=== PATIENT | female | born 1945 | race Hispanic/Latino ===

== ENCOUNTER 2018-03-24 10:37 | Inpatient (IN) | payer MEDICARE ==
[2018-03-24 11:54] LABS: PROTHROMBIN TIME 36.4 Seconds (9.8-13.1)
[2018-03-24 11:57] LABS: PARTIAL THROMBOPLASTIN TIME 56.5 Seconds (25.6-37.1)
[2018-03-24 12:01] LABS: BASO # 0.2 K/uL (0.0-0.2); BASO % 1.7 % (0.0-2.0); EOS # 0.3 K/uL (0.0-0.7); EOS % 2.3 % (0.0-4.0); HEMOGLOBIN 8.3 g/dL (12.0-16.0); LYMPH # 5.9 K/uL (1.0-4.3); LYMPH % 48.6 % (20.0-40.0); MEAN CELL VOLUME 94.7 fl (81.0-99.0); MEAN CORPUSCULAR HEMOGLOBIN 31.2 pg (27.0-31.0); MEAN CORPUSCULAR HGB CONC 32.9 g/dL (33.0-37.0); MEAN PLATELET VOLUME 7.5 fl (7.2-11.7); MONO # 2.7 K/uL (0.0-0.8); MONO % 22.2 % (0.0-10.0); NEUT % 25.2 % (50.0-75.0); NRBC % 0.1 % (0.0-0.0); PLATELET COUNT 460 K/uL (130-400); RBC 2.66 Mil/uL (3.80-5.20); RED CELL DISTRIBUTION WIDTH 16.4 % (11.5-14.5)
[2018-03-24 12:02] LABS: ALB/GLOB RATIO 0.8 (1.0-2.1); ALBUMIN 2.8 g/dL (3.5-5.0); ALT/SGPT 137 U/L (9-52); BLOOD UREA NITROGEN 22 mg/dl (7-17); GFR NON-AFRICAN AMERICAN > 60
[2018-03-24 12:09] LABS: INR 3.2
--- NOTE | 2018-03-24 12:11 | RAD ---
Date of service: 03/24/2018 HISTORY: SOB COMPARISON: No prior. FINDINGS: LUNGS: Left lung infiltrates primarily left lower lobe/retrocardiac region. PLEURA: No significant pleural effusion identified, no pneumothorax apparent. CARDIOVASCULAR: No atherosclerotic calcification present Normal. OSSEOUS STRUCTURES: No significant abnormalities. VISUALIZED UPPER ABDOMEN: Normal. OTHER FINDINGS: None. IMPRESSION: Left lower lobe infiltrate.
[2018-03-24] MEDS ORDERED: Phytonadione 1 mg/0.5 ml Inj (Neonatal) IM ONE (12:12)
[2018-03-24] MEDS ORDERED: Azithromycin 500 MG in Sodium Chloride 0.9% 250 ML IVPB STA (12:13)
[2018-03-24 12:19] LABS: B-TYPE NATRIURETIC PEPTIDE 2440 pg/ml (0-900)
[2018-03-24] MEDS ORDERED: cefTRIAXone (Rocephin) 1 gm Inj ONE (12:29)
[2018-03-24] MEDS ORDERED: Phytonadione 10 mg/ml Inj (Adult) ONE (12:30)
[2018-03-24 12:52] LABS: AST/SGOT 327 U/L (14-36)
[2018-03-24 13:09] LABS: ANISOCYTOSIS SLIGHT; EOSINOPHIL 1 % (0-7); LARGE PLATELETS PRESENT; LYMPHOCYTE 24 % (20-50); MONOCYTE 6 % (0-10); NEUTROPHIL 69 % (42-75); OVALOCYTES MODERATE; PLATELET ESTIMATE NORMAL (NORMAL); SPHEROCYTES SLIGHT; TOTAL CELLS COUNTED 100
[2018-03-24 13:10] LABS: GRANULAR CAST 1 /lpf (0-1); SQUAMOUS EPITHIAL < 1 /hpf (0-5); URINE BACTERIA RARE (<OCC); URINE BILIRUBIN MODERATE (NEGATIVE); URINE BLOOD NEGATIVE (NEGATIVE); URINE CLARITY SLIGHTY-CLOUDY (Clear); URINE COLOR AMBER (YELLOW); URINE GLUCOSE (UA) NEG (NEGATIVE); URINE LEUKOCYTE ESTERASE NEG Leu/uL (Negative); URINE PROTEIN 30 mg/dL (NEGATIVE); WBC CLUMPS FEW /hpf
--- NOTE | 2018-03-24 13:14 | ED PDOC ---
HPI: General Adult Time Seen by Provider: 03/24/18 10:51 Chief Complaint (Nursing): Abdominal Pain Chief Complaint (Provider): Weakness/ Jaundince History Per: Patient, Family (Niece) History/Exam Limitations: no limitations Onset/Duration Of Symptoms: Persistent Current Symptoms Are (Timing): Still Present Additional Complaint(s): 72 y/o female with no significant PMHX and sHs, is brought into the ED by her niece for an evaluation of weakness, inability to ambulate, and yellowing of the skin. Patient states she has not been evaluated by a doctor since the age of [age]. She is aware of her jaundice diagnosis but is unwilling to be evaluated. She only offers a complaint of mild pain to her buttocks and admits to intermittent alcohol abuse, in which, she consumes more than a 6-pack of beer per day. Patient reports "stopping cold turkey" 6 months ago. Otherwise, patient denies headaches, syncope, fever and coughing. PCP: none provided Past Medical History Reviewed: Historical Data, Nursing Documentation, Vital Signs Vital Signs: Last Vital Signs Temp 97.4 F L 03/24/18 10:39 Pulse 75 03/24/18 10:39 Resp 18 03/24/18 10:39 BP 111/75 03/24/18 10:39 Pulse Ox 93 L 03/24/18 10:39 - Medical History PMH: Arthritis (knees) Denies: Chronic Kidney Disease - Surgical History Surgical History: Tonsillectomy - Family History Family History: States: Unknown Family Hx - Social History Alcohol: > 2 Drinks/Day Drugs: Denies - Home Medications Home Medications: Ambulatory Orders Medication Instructions Recorded Aspirin/Acetaminophen/Caffeine 1 tab PO PRN PRN 03/24/18 [Excedrin Extra Strength Caplet] - Allergies Allergies/Adverse Reactions: Allergies Allergy/AdvReac Type Severity Reaction Status Date / Time No Known Allergies Allergy Verified 03/24/18 10:59 Review of Systems ROS Statement: Except As Marked, All Systems Reviewed And Found Negative Constitutional: Positive for: Weakness. Negative for: Fever Respiratory: Negative for: Cough Musculoskeletal: Positive for: Other (inability to ambulate; mild pain to buttocks) Skin: Positive for: Jaundice Neurological: Negative for: Headache, Other (syncope) Physical Exam - Reviewed Nursing Documentation Reviewed: Yes Vital Signs Reviewed: Yes - Physical Exam Appears: Positive for: Non-toxic, No Acute Distress (ill-appearance) Head Exam: Positive for: ATRAUMATIC, NORMAL INSPECTION, NORMOCEPHALIC Skin: Positive for: Jaundice Eye Exam: Positive for: Scleral icterus (Bilateral ) ENT: Positive for: Normal ENT Inspection Neck: Positive for: Normal Cardiovascular/Chest: Positive for: Regular Rate, Rhythm. Negative for: Bradycardia, Tachycardia Respiratory: Positive for: Normal Breath Sounds. Negative for: Respiratory Distress Gastrointestinal/Abdominal: Positive for: Asicites (trace on palpation), Other (anasarca). Negative for: Tenderness Back: Positive for: Other (8 cm area of erythema and irritation on buttocks) Extremity: Positive for: Other (3/5 lower extremity strength) Neurologic/Psych: Positive for: Alert, Oriented (x3) - Laboratory Results Result Diagrams: 03/24/18 11:25 03/24/18 11:25 - ECG O2 Sat by Pulse Oximetry: 93 (RA) Pulse Ox Interpretation: Normal Medical Decision Making Medical Decision Making: Time: 1059 Initial Plan: workup for possible liver failure without prior ED visit. * EKG * Labs * CXR * Accucheck * Rocephin 100ml IV * Zithromax 500mg IV * Blood culture * US ABD Time: 1121 --Accucheck: 97mg/dL. --EKG: NSR at 74 BMP. (+) Low voltages. --B/W reviewed: significant for hyperbilirubinemia, coagulopathy, and anemia. Time: 1207 --CXR FINDINGS: LUNGS: Left lung infiltrates primarily left lower lobe/retrocardiac region. PLEURA: No significant pleural effusion identified, no pneumothorax apparent. CARDIOVASCULAR: No atherosclerotic calcification present Normal. OSSEOUS STRUCTURES: No significant abnormalities. VISUALIZED UPPER ABDOMEN: Normal. OTHER FINDINGS: None. IMPRESSION: Left lower lobe infiltrate. Time: 1215 --Patient to be admitted to Dr. Clemens for acute liver failure. Antibiotics initiated for pneumonia after blood cultures initiated Abd US ordered and pending at time admission. --- Scribe Attestation: Documented by Sonja Camacho and Aundrea Baltazar, acting as scribes for Julien Garcia III, DO. Provider Scribe Attestation: All medical record entries made by the Scribe were at my direction and p ersonally dictated by me. I have reviewed the chart and agree that the record accurately reflects my personal performance of the history, physical exam, medical decision making, and the department course for this patient. I have also personally directed, reviewed, and agree with the discharge instructions and disposition. Disposition - Clinical Impression Clinical Impression: Liver failure, Pneumonia - Patient ED Disposition Is Patient to be Admitted: Yes Counseled Patient/Family Regarding: Studies Performed, Diagnosis, Need For Followup - Disposition Disposition Time: 12:00 Condition: STABLE - Pt Status Changed To: Hospital Disposition Of: Inpatient - Admit Certification Admit to Inpatient:: After my assessment, the patient will require hospitalization for at least two midnights. This is because of the severity of symptoms shown, intensity of services needed, and/or the medical risk in this patient being treated as an outpatient.
[2018-03-24] MEDS ORDERED: Azithromycin 500 MG IV IVPB ONE (14:45)
--- NOTE | 2018-03-24 15:55 | US ---
Date of service: 03/24/2018 HISTORY: new onset jaundice COMPARISON: None. TECHNIQUE: Sonographic evaluation of the abdomen. FINDINGS: LIVER: Measures 18.1 cm. Hepatopedal blood flow. Fatty infiltration manifest ultrasonographically as increased echogenicity of the liver parenchyma. Markedly dilated intrahepatic biliary radicles. No hepatic masses identified. GALLBLADDER: Distended gallbladder with sludge and possible gallstones. COMMON BILE DUCT: Measures 19.4 mm. Markedly distended common bile duct as visualized. The distal common bile duct is obscured. PANCREAS: Unremarkable as visualized. No mass. No ductal dilatation. RIGHT KIDNEY: Measures 5 x 9.8cm. Normal echogenicity. No calculus, mass, or hydronephrosis. LEFT KIDNEY: Measures 5.2 x 9.8cm. Normal echogenicity. No calculus, mass, or hydronephrosis. SPLEEN: Normal in size and contour. No mass. AORTA: No aneurysmal dilatation. IVC: Unremarkable. OTHER FINDINGS: Intra-abdominal ascites. IMPRESSION: Marked distention of the biliary system. The common bile duct and intrahepatic biliary radicles are markedly distended likely due to distal common duct obstruction. Common duct stones are not visualized. There is no visible pancreatic head mass. Intra-abdominal ascites. Cholelithiasis without CT evidence of acute cholecystitis. Sludge identified. Follow-up recommendations: Contrast-enhanced CT recommended for further evaluation to assess the distal common bile duct, pancreas and ampullary region.
--- NOTE | 2018-03-24 19:51 | CARD ---
APPROVED REPORT Date of service: 03/24/2018 EKG Measurement Heart [id number] <Conclusion> Normal sinus rhythm Low voltage QRS Nonspecific T wave abnormality Abnormal ECG
[2018-03-25 06:42] LABS: HEMOGLOBIN 7.3 g/dL (12.0-16.0); MEAN CELL VOLUME 93.8 fl (81.0-99.0); MEAN CORPUSCULAR HEMOGLOBIN 31.7 pg (27.0-31.0); MEAN CORPUSCULAR HGB CONC 33.9 g/dL (33.0-37.0); RBC 2.31 Mil/uL (3.80-5.20); RED CELL DISTRIBUTION WIDTH 16.4 % (11.5-14.5); WHITE BLOOD COUNT 9.2 K/uL (4.8-10.8)
[2018-03-25 06:50] LABS: ALB/GLOB RATIO 0.8 (1.0-2.1); ALBUMIN 2.2 g/dL (3.5-5.0); ALT/SGPT 123 U/L (9-52); AST/SGOT 289 U/L (14-36); BLOOD UREA NITROGEN 20 mg/dl (7-17); CALCIUM 8.6 mg/dL (8.4-10.2); GFR NON-AFRICAN AMERICAN > 60; HDL CHOLESTEROL 64 MG/DL (30-70)
[2018-03-25 06:55] LABS: LDL CHOLESTEROL 199 mg/dL (0-129)
[2018-03-25] MEDS: Azithromycin 500 MG in Sodium Chloride 0.9% 250 ML IVPB SCH (08:34)
[2018-03-25 16:49] LABS: HEMOGLOBIN 6.9 g/dL (12.0-16.0); MEAN CELL VOLUME 93.6 fl (81.0-99.0); MEAN CORPUSCULAR HEMOGLOBIN 31.7 pg (27.0-31.0); MEAN CORPUSCULAR HGB CONC 33.9 g/dL (33.0-37.0); RBC 2.19 Mil/uL (3.80-5.20); RED CELL DISTRIBUTION WIDTH 16.2 % (11.5-14.5); WHITE BLOOD COUNT 8.4 K/uL (4.8-10.8)
[2018-03-25] MEDS: Potassium Chloride 20 mEq ER Tab PO SCH (17:19)
--- NOTE | 2018-03-25 23:22 | CP.PCM.CON ---
History of Present Illness - History of Present Illness History of Present Illness: 72 yo female brought to ER by her niece for weakness and jaundice. She states she has been having abdominal pain and weakness for 2 months. She admits to drinking a 6 pack of beer at times but none for 6 months. Review of Systems - Constitutional Constitutional: absent: Chills - EENT Eyes: absent: Blind Spots Ears: absent: Decreased Hearing Nose/Mouth/Throat: absent: Epistaxis - Cardiovascular Cardiovascular: absent: Chest Pain - Respiratory Respiratory: absent: Dyspnea - Gastrointestinal Gastrointestinal: Abdominal Pain - Genitourinary Genitourinary: absent: Change in Urinary Stream Past Patient History - Infectious Disease Hx of Infectious Diseases: None - Past Social History Smoking Status: Never Smoked - CARDIAC Hx Cardiac Disorders: No - PULMONARY Hx Respiratory Disorders: No - NEUROLOGICAL Hx Neurological Disorder: No - HEENT Hx HEENT Problems: No - RENAL Hx Chronic Kidney Disease: No - ENDOCRINE/METABOLIC Hx Endocrine Disorders: No - HEMATOLOGICAL/ONCOLOGICAL Hx Blood Disorders: No - INTEGUMENTARY Hx Dermatological Problems: No - MUSCULOSKELETAL/RHEUMATOLOGICAL Hx Musculoskeletal Disorders: No Hx Falls: No - GASTROINTESTINAL Hx Gastrointestinal Disorders: No - GENITOURINARY/GYNECOLOGICAL Hx Genitourinary Disorders: No - PSYCHIATRIC Hx Psychophysiologic Disorder: No Hx Substance Use: No - SURGICAL HISTORY Hx Tonsillectomy: Yes - ANESTHESIA Hx Anesthesia: Yes Hx Anesthesia Reactions: No Meds Allergies/Adverse Reactions: Allergies Allergy/AdvReac Type Severity Reaction Status Date / Time No Known Allergies Allergy Verified 03/24/18 10:59 - Medications Medications: Current Medications Furosemide (Lasix) 40 mg PO DAILY LISA Azithromycin 500 mg/ Sodium (Chloride) 250 mls @ 250 mls/hr IVPB DAILY LISA; Protocol Last Admin: 03/25/18 08:34 Dose: 250 mls/hr Ceftriaxone Sodium 1 gm/ (Sodium Chloride) 100 mls @ 100 mls/hr IVPB DAILY LISA; Protocol Last Admin: 03/25/18 08:33 Dose: 100 mls/hr Pantoprazole Sodium (Protonix Ec Tab) 40 mg PO DAILY LISA Potassium Chloride (K-Dur 20 Meq Er Tab) 40 meq PO DAILY LISA Last Admin: 03/25/18 17:19 Dose: 40 meq Physical Exam - Head Exam Head Exam: ATRAUMATIC - Eye Exam Eye Exam: Normal appearance, Scleral icterus - ENT Exam ENT Exam: Mucous Membranes Moist - Neck Exam Neck exam: Positive for: Normal Inspection - Respiratory Exam Respiratory Exam: Clear to Auscultation Bilateral - Cardiovascular Exam Cardiovascular Exam: REGULAR RHYTHM, +S1, +S2 - GI/Abdominal Exam GI & Abdominal Exam: Normal Bowel Sounds, Soft. absent: Tenderness Results - Vital Signs Recent Vital Signs: Last Vital Signs Temp 98.4 F 03/25/18 22:10 Pulse 77 03/25/18 22:10 Resp 17 03/25/18 22:10 BP 110/62 03/25/18 22:10 Pulse Ox 98 03/25/18 16:31 - Labs Result Diagrams: 03/25/18 16:45 03/25/18 05:30 Labs: Laboratory Results - last 24 hr 03/25/18 03/25/18 03/25/18 05:30 05:30 05:30 WBC 9.2 RBC 2.31 L Hgb 7.3 L Hct 21.7 L MCV 93.8 MCH 31.7 H MCHC 33.9 RDW 16.4 H Plt Count 411 H ESR 82 H Sodium 134 Potassium 3.1 L Chloride 107 Carbon Dioxide 20 L Anion Gap 10 BUN 20 H Creatinine 0.9 Est GFR ( Amer) > 60 Est GFR (Non-Af Amer) > 60 Random Glucose 91 Calcium 8.6 Total Bilirubin 12.8 H AST 289 H ALT 123 H Alkaline Phosphatase 2928 H Total Protein 5.2 L Albumin 2.2 L D Globulin 2.9 Albumin/Globulin Ratio 0.8 L Triglycerides 121 Cholesterol 478 H LDL Cholesterol Direct 199 H HDL Cholesterol 64 Alpha Fetoprotein 4.7 Carcinoembryonic Ag 23.5 H CA 19-9 Antigen 8150 H TSH 3rd Generation 2.63 Blood Type Blood Type Confirm Antibody Screen Crossmatch BBK History Checked 03/25/18 03/25/18 03/25/18 16:45 16:45 17:45 WBC 8.4 RBC 2.19 L Hgb 6.9 L Hct 20.4 L MCV 93.6 MCH 31.7 H MCHC 33.9 RDW 16.2 H Plt Count 346 ESR Sodium Potassium Chloride Carbon Dioxide Anion Gap BUN Creatinine Est GFR ( Amer) Est GFR (Non-Af Amer) Random Glucose Calcium Total Bilirubin AST ALT Alkaline Phosphatase Total Protein Albumin Globulin Albumin/Globulin Ratio Triglycerides Cholesterol LDL Cholesterol Direct HDL Cholesterol Alpha Fetoprotein Carcinoembryonic Ag CA 19-9 Antigen TSH 3rd Generation Blood Type B POSITIVE Blood Type Confirm B POSITIVE Antibody Screen Negative Crossmatch See Detail BBK History Checked No verified bt Assessment & Plan (1) Obstructive jaundice Assessment and Plan: Obstructive jaundice. DDX includes stne or mass. Also marked abdominal distention. Recommend CT abdomen and pelvis. After CT will do ERCP. IV hydration for now. Status: Acute
[2018-03-26] MEDS ORDERED: Iohexol 240 (50 ml) PO STA (07:13)
[2018-03-26 07:50] LABS: HEMOGLOBIN 9.9 g/dL (12.0-16.0); MEAN CELL VOLUME 93.8 fl (81.0-99.0); MEAN CORPUSCULAR HEMOGLOBIN 31.4 pg (27.0-31.0); MEAN CORPUSCULAR HGB CONC 33.5 g/dL (33.0-37.0); RBC 3.14 Mil/uL (3.80-5.20); RED CELL DISTRIBUTION WIDTH 16.5 % (11.5-14.5); WHITE BLOOD COUNT 8.7 K/uL (4.8-10.8)
[2018-03-26] MEDS: Potassium Chloride 20 mEq ER Tab PO SCH (08:42)
[2018-03-26] MEDS: Pantoprazole 40 mg EC Tab PO SCH (08:43)
[2018-03-26] MEDS: Azithromycin 500 MG in Sodium Chloride 0.9% 250 ML IVPB SCH (11:08)
[2018-03-26] MEDS ORDERED: Sodium Chloride 0.9% 50 ML IV ONE (11:25)
[2018-03-26] MEDS ORDERED: Iohexol 300 100 ML IJ ONE (11:25)
--- NOTE | 2018-03-26 13:43 | CT ---
Date of service: 03/26/2018 PROCEDURE: CT Abdomen and Pelvis with and without intravenous contrast HISTORY: Elevated Bili, Abdominal swelling. R/o malignancy COMPARISON: None. TECHNIQUE: Axial images of the abdomen were obtained in the pre contrast, portal venous and delayed phases of enhancement. Coronal and sagittal reformats were generated. Contrast dose: Omnipaque 300, 95 cc Radiation dose: Total exam DLP = 1537.02 mGy-cm. This CT exam was performed using one or more of the following dose reduction techniques: Automated exposure control, adjustment of the mA and/or kV according to patient size, and/or use of iterative reconstruction technique. FINDINGS: LOWER THORAX: Bilateral lower lobe infiltrates and left pleural effusion noted. LIVER: Gross intrahepatic biliary duct dilatation is identified. No definitive hepatic mass identified. GALLBLADDER AND BILE DUCTS: Gallbladder is mildly distended and otherwise unremarkable appearing. Gross extrahepatic bile duct dilatation including common hepatic duct which measures 22.1 mm, proximal common bile duct which measures 21 mm, mid CBD 17.6 mm and distal CBD 7.4 mm. There is questionable prominence of the ampulla and an ampullary mass is not excluded. No definite choledocholithiasis or cholelithiasis identified. PANCREAS: 1.8 x 1.6 cm lucency identified at the pancreatic head suspicious for small neoplasm. SPLEEN: Unremarkable. ADRENALS: Unremarkable. No mass. KIDNEYS AND URETERS: Unremarkable. No hydronephrosis. No solid mass. VASCULATURE: Unremarkable. No aortic aneurysm. No aortic atherosclerotic calcification or mural plaque present. BOWEL: Unremarkable. No obstruction. No gross mural thickening. APPENDIX: Normal appendix. PERITONEUM: There is gross ascites. No free air. LYMPH NODES: Unremarkable. No enlarged lymph nodes. BLADDER: Unremarkable. REPRODUCTIVE: Unremarkable. BONES: No acute fracture. OTHER FINDINGS: Anasarca. IMPRESSION: Gross dilatation of the intrahepatic and extrahepatic biliary tree without choledocholithiasis appreciable. Gallbladder is mildly distended. Potential ampullary mass. Gross ascites. Anasarca identified. There are small lucency at the head of the pancreas is identified. Consider follow-up ultrasound or MRI without contrast.
[2018-03-26] MEDS: Lactated Ringer's 1,000 ML IV SCH (23:59)
[2018-03-27] MEDS: Proshield Plus GEL TOP SCH ×3 (01:15→16:39)
[2018-03-27 06:22] LABS: MEAN CELL VOLUME 92.2 fl (81.0-99.0); MEAN CORPUSCULAR HEMOGLOBIN 31.5 pg (27.0-31.0); MEAN CORPUSCULAR HGB CONC 34.1 g/dL (33.0-37.0); RBC 3.19 Mil/uL (3.80-5.20); RED CELL DISTRIBUTION WIDTH 17.2 % (11.5-14.5); WHITE BLOOD COUNT 10.4 K/uL (4.8-10.8)
[2018-03-27 06:44] LABS: INR 1.1; PROTHROMBIN TIME 12.3 Seconds (9.8-13.1)
[2018-03-27 06:49] LABS: ALB/GLOB RATIO 0.7 (1.0-2.1); ALBUMIN 2.1 g/dL (3.5-5.0); ALT/SGPT 117 U/L (9-52); AST/SGOT 226 U/L (14-36); BLOOD UREA NITROGEN 17 mg/dl (7-17); CALCIUM 8.3 mg/dL (8.4-10.2); GFR NON-AFRICAN AMERICAN > 60
--- NOTE | 2018-03-27 07:19 | CP.PCM.HP ---
History of Present Illness - History of Present Illness History of Present Illness: This is a 72 y/o female admitted for generalized weakness , progressive weight loss and elevated liver enzymes . Past Patient History - Infectious Disease Hx of Infectious Diseases: None - Past Social History Smoking Status: Never Smoked - CARDIAC Hx Cardiac Disorders: No - PULMONARY Hx Respiratory Disorders: No - NEUROLOGICAL Hx Neurological Disorder: No - HEENT Hx HEENT Problems: No - RENAL Hx Chronic Kidney Disease: No - ENDOCRINE/METABOLIC Hx Endocrine Disorders: No - HEMATOLOGICAL/ONCOLOGICAL Hx Blood Disorders: No - INTEGUMENTARY Hx Dermatological Problems: No - MUSCULOSKELETAL/RHEUMATOLOGICAL Hx Musculoskeletal Disorders: No Hx Falls: No - GASTROINTESTINAL Hx Gastrointestinal Disorders: No - GENITOURINARY/GYNECOLOGICAL Hx Genitourinary Disorders: No - PSYCHIATRIC Hx Psychophysiologic Disorder: No Hx Substance Use: No - SURGICAL HISTORY Hx Tonsillectomy: Yes - ANESTHESIA Hx Anesthesia: Yes Hx Anesthesia Reactions: No Meds Allergies/Adverse Reactions: Allergies Allergy/AdvReac Type Severity Reaction Status Date / Time No Known Allergies Allergy Verified 03/24/18 10:59 Results - Vital Signs Recent Vital Signs: Last Vital Signs Temp 97.4 F L 03/26/18 23:32 Pulse 80 03/26/18 23:32 Resp 20 03/26/18 23:32 BP 109/65 03/26/18 23:32 Pulse Ox 98 03/26/18 23:32 - Labs Result Diagrams: 03/27/18 05:45 03/27/18 05:45 Labs: Laboratory Results - last 24 hr 03/25/18 03/26/18 03/27/18 16:45 06:00 05:45 WBC 8.7 10.4 RBC 3.14 L 3.19 L Hgb 9.9 L D 10.0 L Hct 29.4 L 29.4 L MCV 93.8 92.2 MCH 31.4 H 31.5 H MCHC 33.5 34.1 RDW 16.5 H 17.2 H Plt Count 347 285 PT INR Sodium Potassium Chloride Carbon Dioxide Anion Gap BUN Creatinine Est GFR ( Amer) Est GFR (Non-Af Amer) Random Glucose Calcium Total Bilirubin AST ALT Alkaline Phosphatase Total Protein Albumin Globulin Albumin/Globulin Ratio Crossmatch See Detail 03/27/18 03/27/18 05:45 05:45 WBC RBC Hgb Hct MCV MCH MCHC RDW Plt Count PT 12.3 D INR 1.1 Sodium 135 Potassium 3.5 L Chloride 105 Carbon Dioxide 20 L Anion Gap 14 BUN 17 Creatinine 0.7 Est GFR ( Amer) > 60 Est GFR (Non-Af Amer) > 60 Random Glucose 99 Calcium 8.3 L Total Bilirubin 14.4 H AST 226 H D ALT 117 H Alkaline Phosphatase 2840 H Total Protein 5.2 L Albumin 2.1 L Globulin 3.0 Albumin/Globulin Ratio 0.7 L Crossmatch
--- NOTE | 2018-03-27 07:21 | CP.PCM.PN ---
Subjective - Date & Time of Evaluation Date of Evaluation: 03/26/18 Time of Evaluation: 18:00 - Subjective Subjective: Patient has better appetite. family claims that she has lost about more than a hundred pounds in the last year, Noted elevated CEA abn libver enzymes and possible pancreatic mass. CA 19-9 8150 CEA 23 Objective - Vital Signs/Intake and Output Vital Signs (last 24 hours): Temp Pulse Resp BP Pulse Ox 97.4 F L 80 20 109/65 98 03/26/18 23:32 03/26/18 23:32 03/26/18 23:32 03/26/18 23:32 03/26/18 23:32 - Medications Medications: Current Medications Dimethicone (Proshield Plus Skin Protectant) 1 applic TOP Q8 LISA Last Admin: 03/27/18 01:15 Dose: 1 applic Furosemide (Lasix) 40 mg PO DAILY LISA Last Admin: 03/26/18 08:43 Dose: 40 mg Azithromycin 500 mg/ Sodium (Chloride) 250 mls @ 250 mls/hr IVPB DAILY LISA; Protocol Last Admin: 03/26/18 11:08 Dose: 250 mls/hr Ceftriaxone Sodium 1 gm/ (Sodium Chloride) 100 mls @ 100 mls/hr IVPB DAILY LISA; Protocol Last Admin: 03/26/18 08:43 Dose: 100 mls/hr Lactated Ringer's (Lactated Ringer's) 1,000 mls @ 60 mls/hr IV .[id number] LISA Last Admin: 03/26/18 23:59 Dose: 60 mls/hr Nystatin (Nystop Topical Powder) 1 applic TOP TID LISA Pantoprazole Sodium (Protonix Ec Tab) 40 mg PO DAILY LISA Last Admin: 03/26/18 08:43 Dose: 40 mg Potassium Chloride (K-Dur 20 Meq Er Tab) 40 meq PO DAILY LISA Last Admin: 03/26/18 08:42 Dose: 40 meq - Labs Labs: 03/27/18 05:45 03/27/18 05:45 PT 12.3 Seconds (9.8-13.1) D 03/27/18 05:45 INR 1.1 03/27/18 05:45 APTT 56.5 Seconds (25.6-37.1) H 03/24/18 11:25
[2018-03-27 08:13] LABS: HEPATITIS B SURFACE AG Negative (NEGATIVE)
[2018-03-27 08:19] LABS: HEPATITIS A IGM NEGATIVE (NEGATIVE); HEPATITIS B CORE AB NEGATIVE (NEGATIVE)
[2018-03-27] MEDS: Potassium Chloride 20 mEq ER Tab PO SCH ×2 (08:29→16:39)
[2018-03-27 08:30] LABS: HEPATITIS C ANTIBODY NEGATIVE (NEGATIVE)
[2018-03-27] MEDS: Pantoprazole 40 mg EC Tab PO SCH ×2 (08:30→16:44)
[2018-03-27] MEDS: Azithromycin 500 MG in Sodium Chloride 0.9% 250 ML IVPB SCH (08:32)
--- NOTE | 2018-03-27 14:10 | CP.PCM.PN ---
Subjective - Date & Time of Evaluation Date of Evaluation: 03/27/18 Time of Evaluation: 14:07 - Subjective Subjective: Patient with no new complaints. Continues with jaundice. Objective - Vital Signs/Intake and Output Vital Signs (last 24 hours): Temp Pulse Resp BP Pulse Ox 97.9 F 76 18 101/62 99 03/27/18 07:39 03/27/18 07:39 03/27/18 07:39 03/27/18 07:39 03/27/18 07:39 - Medications Medications: Current Medications Dimethicone (Proshield Plus Skin Protectant) 1 applic TOP Q8 LISA Last Admin: 03/27/18 08:30 Dose: 1 applic Furosemide (Lasix) 40 mg PO DAILY LISA Last Admin: 03/27/18 08:30 Dose: Not Given Azithromycin 500 mg/ Sodium (Chloride) 250 mls @ 250 mls/hr IVPB DAILY LISA; Protocol Last Admin: 03/27/18 08:32 Dose: 250 mls/hr Ceftriaxone Sodium 1 gm/ (Sodium Chloride) 100 mls @ 100 mls/hr IVPB DAILY LISA; Protocol Last Admin: 03/27/18 08:32 Dose: 100 mls/hr Lactated Ringer's (Lactated Ringer's) 1,000 mls @ 60 mls/hr IV .[id number] LISA Last Admin: 03/26/18 23:59 Dose: 60 mls/hr Nystatin (Nystop Topical Powder) 1 applic TOP TID LISA Last Admin: 03/27/18 13:09 Dose: 1 applic Pantoprazole Sodium (Protonix Ec Tab) 40 mg PO DAILY LISA Last Admin: 03/27/18 08:30 Dose: Not Given Potassium Chloride (K-Dur 20 Meq Er Tab) 40 meq PO DAILY LISA Last Admin: 03/27/18 08:29 Dose: Not Given - Labs Labs: 03/27/18 05:45 03/27/18 05:45 PT 12.3 Seconds (9.8-13.1) D 03/27/18 05:45 INR 1.1 03/27/18 05:45 APTT 56.5 Seconds (25.6-37.1) H 03/24/18 11:25 - Constitutional Appears: Cachectic - Head Exam Head Exam: ATRAUMATIC - Eye Exam Eye Exam: Scleral icterus - ENT Exam ENT Exam: Normal Exam - Neck Exam Neck Exam: Full ROM - Respiratory Exam Respiratory Exam: NORMAL BREATHING PATTERN - Cardiovascular Exam Cardiovascular Exam: REGULAR RHYTHM, +S1, +S2 - GI/Abdominal Exam GI & Abdominal Exam: Distended, Normal Bowel Sounds. absent: Tenderness Assessment and Plan (1) Obstructive jaundice Assessment & Plan: Elevated CA 19-[address] most c/w pancreatic cancer. For ERCP tomorrow with biliary stenting tomorrow. Status: Acute
[2018-03-27] MEDS: Lactated Ringer's 1,000 ML IV SCH ×2 (16:47→20:37)
[2018-03-28] MEDS: Proshield Plus GEL TOP SCH ×3 (01:00→16:49)
[2018-03-28 06:00] LABS: HEMOGLOBIN 11.4 g/dL (12.0-16.0); MEAN CELL VOLUME 92.7 fl (81.0-99.0); MEAN CORPUSCULAR HEMOGLOBIN 31.1 pg (27.0-31.0); MEAN CORPUSCULAR HGB CONC 33.5 g/dL (33.0-37.0); RBC 3.68 Mil/uL (3.80-5.20); RED CELL DISTRIBUTION WIDTH 17.1 % (11.5-14.5); WHITE BLOOD COUNT 9.9 K/uL (4.8-10.8)
[2018-03-28 06:58] LABS: ALB/GLOB RATIO 0.7 (1.0-2.1); ALBUMIN 2.2 g/dL (3.5-5.0); ALT/SGPT 104 U/L (9-52); AST/SGOT 161 U/L (14-36); BLOOD UREA NITROGEN 18 mg/dl (7-17); CALCIUM 8.7 mg/dL (8.4-10.2); GFR NON-AFRICAN AMERICAN > 60
[2018-03-28] MEDS ORDERED: Phenylephrine 10 mg/ml Inj ONE (07:05)
[2018-03-28] MEDS ORDERED: ePHEDrine 50 mg/ml Inj ONE (07:05)
[2018-03-28] MEDS ORDERED: Iohexol 240 (50 ml) ONE (07:24)
[2018-03-28] MEDS ORDERED: Succinylcholine 200 mg/10 ml Inj IV ONE (07:40)
[2018-03-28] MEDS ORDERED: Propofol 10 mg/ml Inj (20 ML) ONE (07:40)
[2018-03-28] MEDS ORDERED: Lactated Ringer's 500 ML IV ONE ×2 (08:26→10:10)
[2018-03-28] MEDS ORDERED: EPINEPHrine 1 mg/ml (1:1000) Inj ONE (09:14)
[2018-03-28] MEDS: Potassium Chloride 20 mEq ER Tab PO SCH (12:05)
[2018-03-28] MEDS: Pantoprazole 40 mg EC Tab PO SCH (12:06)
--- NOTE | 2018-03-28 12:07 | CP.PCM.PN ---
Subjective - Date & Time of Evaluation Date of Evaluation: 03/28/18 Time of Evaluation: 12:00 - Subjective Subjective: Pt seen/evaluated at bedside this morning. S/p ERCP with stent placement by GI, Dr. Viramontes. Pt reports no acute distress, sitting up in bed. Tolerating drinking water. No chest pain, abdominal pain, bloating, shortness of breath, or calf pain. Objective - Vital Signs/Intake and Output Vital Signs (last 24 hours): Temp Pulse Resp BP Pulse Ox 97.1 F L 79 19 109/60 100 03/28/18 10:20 03/28/18 10:20 03/28/18 10:20 03/28/18 10:20 03/28/18 10:20 Intake and Output: 03/28/18 03/28/18 06:59 18:59 Intake Total 550 Balance 550 - Medications Medications: Current Medications Dimethicone (Proshield Plus Skin Protectant) 1 applic TOP Q8 LISA Last Admin: 03/28/18 01:00 Dose: 1 applic Furosemide (Lasix) 40 mg PO DAILY LISA Last Admin: 03/27/18 16:39 Dose: 40 mg Azithromycin 500 mg/ Sodium (Chloride) 250 mls @ 250 mls/hr IVPB DAILY LISA; Protocol Last Admin: 03/27/18 08:32 Dose: 250 mls/hr Ceftriaxone Sodium 1 gm/ (Sodium Chloride) 100 mls @ 100 mls/hr IVPB DAILY LISA; Protocol Last Admin: 03/27/18 08:32 Dose: 100 mls/hr Lactated Ringer's (Lactated Ringer's) 1,000 mls @ 60 mls/hr IV .[id number] LISA Last Admin: 03/27/18 20:37 Dose: 60 mls/hr Nystatin (Nystop Topical Powder) 1 applic TOP TID LISA Last Admin: 03/27/18 16:39 Dose: 1 applic Pantoprazole Sodium (Protonix Ec Tab) 40 mg PO DAILY LISA Last Admin: 03/27/18 16:44 Dose: 40 mg Potassium Chloride (K-Dur 20 Meq Er Tab) 40 meq PO DAILY LISA Last Admin: 03/27/18 16:39 Dose: 40 meq - Labs Labs: 03/28/18 05:40 03/28/18 05:40 PT 12.3 Seconds (9.8-13.1) D 03/27/18 05:45 INR 1.1 03/27/18 05:45 APTT 56.5 Seconds (25.6-37.1) H 03/24/18 11:25 Assessment and Plan (1) Obstructive jaundice Status: Acute (2) Elevated CA 19-9 level Status: Acute (3) Elevated CEA Status: Acute (4) Elevated liver enzymes Status: Acute (5) Pneumonia Status: Acute - Assessment and Plan (Free Text) Plan: - S/p ERCP today with stent placement; f/u recs from GI Dr. Viramontes, recs appreciated - Continue with antibiotics for PNA - Monitor liver enzymes on CMP - Hypokalemia - replete K w/ PO K, monitor - Elevated CEA and CA19-9, possible pancreatic mass- heme/onc consult - Heart healthy diet - Physical therapy eval and treat - SCDs
[2018-03-28] MEDS: Azithromycin 500 MG in Sodium Chloride 0.9% 250 ML IVPB SCH (14:10)
[2018-03-28] MEDS: Lactated Ringer's 1,000 ML IV SCH (19:36)
[2018-03-29] MEDS: Proshield Plus GEL TOP SCH ×4 (01:06→17:19)
[2018-03-29] MEDS: Lactated Ringer's 1,000 ML IV SCH ×3 (02:00→22:52)
[2018-03-29 06:22] LABS: ALB/GLOB RATIO 0.7 (1.0-2.1); ALBUMIN 2.4 g/dL (3.5-5.0); ALT/SGPT 102 U/L (9-52); AST/SGOT 141 U/L (14-36); BLOOD UREA NITROGEN 21 mg/dl (7-17); CALCIUM 8.9 mg/dL (8.4-10.2); GFR NON-AFRICAN AMERICAN > 60
[2018-03-29] MEDS: Azithromycin 500 MG in Sodium Chloride 0.9% 250 ML IVPB SCH (09:17)
[2018-03-29] MEDS: Potassium Chloride 20 mEq ER Tab PO SCH (09:19)
[2018-03-29] MEDS: Pantoprazole 40 mg EC Tab PO SCH (09:30)
--- NOTE | 2018-03-29 10:10 | CP.PCM.CON ---
History of Present Illness - History of Present Illness History of Present Illness: This is a 72 yrs old female who was brought to the ED by her niece because of increasing weakness and jaundice, Pt has been weak for the past couple of months but did not want to be investigated. The last time she saw a doctor was when she was 4 yrs old. Her appetite was poor but no vomiting or abdominal pain. A ct scan done on arrival showed the common bile duct to be very dilated, with a mass in the pancreas . no liver mass. Pt has a h/o drinking 1-2 drinks daily or occasionally 6 beers a day. No h/o other medical illnesses. Past Patient History - Infectious Disease Hx of Infectious Diseases: None - Past Social History Smoking Status: Never Smoked - CARDIAC Hx Cardiac Disorders: No - PULMONARY Hx Respiratory Disorders: No - NEUROLOGICAL Hx Neurological Disorder: No - HEENT Hx HEENT Problems: No - RENAL Hx Chronic Kidney Disease: No - ENDOCRINE/METABOLIC Hx Endocrine Disorders: No - HEMATOLOGICAL/ONCOLOGICAL Hx Blood Disorders: No - INTEGUMENTARY Hx Dermatological Problems: No - MUSCULOSKELETAL/RHEUMATOLOGICAL Hx Musculoskeletal Disorders: No Hx Falls: No - GASTROINTESTINAL Hx Gastrointestinal Disorders: No - GENITOURINARY/GYNECOLOGICAL Hx Genitourinary Disorders: No - PSYCHIATRIC Hx Psychophysiologic Disorder: No Hx Substance Use: No - SURGICAL HISTORY Hx Tonsillectomy: Yes - ANESTHESIA Hx Anesthesia: Yes Hx Anesthesia Reactions: No Meds Allergies/Adverse Reactions: Allergies Allergy/AdvReac Type Severity Reaction Status Date / Time No Known Allergies Allergy Verified 03/24/18 10:59 - Medications Medications: Current Medications Dimethicone (Proshield Plus Skin Protectant) 1 applic TOP Q8 [facility] Last Admin: 03/29/18 09:21 Dose: 1 applic Furosemide (Lasix) 40 mg PO DAILY [facility] Last Admin: 03/29/18 09:19 Dose: 40 mg Azithromycin 500 mg/ Sodium (Chloride) 250 mls @ 250 mls/hr IVPB DAILY [facility]; Protocol Last Admin: 03/29/18 09:17 Dose: 250 mls/hr Ceftriaxone Sodium 1 gm/ (Sodium Chloride) 100 mls @ 100 mls/hr IVPB DAILY [facility]; Protocol Last Admin: 03/29/18 09:17 Dose: 100 mls/hr Lactated Ringer's (Lactated Ringer's) 1,000 mls @ 60 mls/hr IV .[id number] [facility] Last Admin: 12/19/18 02:00 Dose: Not Given Nystatin (Nystop Topical Powder) 1 applic TOP TID [facility] Last Admin: 03/29/18 09:20 Dose: 1 applic Pantoprazole Sodium (Protonix Ec Tab) 40 mg PO DAILY [facility] Last Admin: 03/29/18 09:30 Dose: 40 mg Potassium Chloride (K-Dur 20 Meq Er Tab) 40 meq PO DAILY [facility] Last Admin: 03/29/18 09:19 Dose: 40 meq Physical Exam - Additional Findings Additional findings: Physical exam; Alert.well oriented, in no acute distress, very jaundiced. neck; supple, no adenopathy Chest; Air entry decreased both bases,, no raleor rhonchi Heart; RSR, no murmur Abd; Ascitis 3+, mass 2-3 cm in the epigastric area. Results - Vital Signs Recent Vital Signs: Last Vital Signs Temp 97.5 F L 03/29/18 08:00 Pulse 69 03/29/18 08:00 Resp 20 03/29/18 08:00 BP 109/64 03/29/18 09:19 Pulse Ox 98 03/29/18 08:00 - Labs Result Diagrams: 03/28/18 05:40 03/29/18 05:35 Labs: Laboratory Results - last 24 hr 03/29/18 05:35 Sodium 136 Potassium 4.0 Chloride 107 Carbon Dioxide 20 L Anion Gap 13 BUN 21 H Creatinine 0.8 Est GFR ( Amer) > 60 Est GFR (Non-Af Amer) > 60 Random Glucose 108 H Calcium 8.9 Total Bilirubin 10.0 H AST 141 H ALT 102 H Alkaline Phosphatase 2695 H Total Protein 5.6 L Albumin 2.4 L Globulin 3.2 Albumin/Globulin Ratio 0.7 L Assessment & Plan - Assessment and Plan (Free Text) Assessment: impression; Pancreatic mass 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
--- NOTE | 2018-03-29 11:19 | CP.PCM.PN ---
Subjective - Date & Time of Evaluation Date of Evaluation: 03/29/18 Time of Evaluation: 11:20 - Subjective Subjective: Pt seen/evaluated at bedside this morning with Dr. Ham. Yesterday she underwent ERCP with stent placement by GI, Dr. Viramontes. Pt reports she feels okay, has more of an appetite, sitting up in bed. Tried to work with PT yest but could not do much. No chest pain, abdominal pain, bloating, shortness of breath, or calf pain. Objective - Vital Signs/Intake and Output Vital Signs (last 24 hours): Temp Pulse Resp BP Pulse Ox 97.5 F L 69 20 109/64 98 03/29/18 08:00 03/29/18 08:00 03/29/18 08:00 03/29/18 09:19 03/29/18 08:00 - Medications Medications: Current Medications Dimethicone (Proshield Plus Skin Protectant) 1 applic TOP Q8 [facility] Last Admin: 03/29/18 09:21 Dose: 1 applic Furosemide (Lasix) 40 mg PO DAILY [facility] Last Admin: 03/29/18 09:19 Dose: 40 mg Azithromycin 500 mg/ Sodium (Chloride) 250 mls @ 250 mls/hr IVPB DAILY [facility]; Protocol Last Admin: 03/29/18 09:17 Dose: 250 mls/hr Ceftriaxone Sodium 1 gm/ (Sodium Chloride) 100 mls @ 100 mls/hr IVPB DAILY [facility]; Protocol Last Admin: 03/29/18 09:17 Dose: 100 mls/hr Lactated Ringer's (Lactated Ringer's) 1,000 mls @ 60 mls/hr IV .[id number] [facility] Last Admin: 03/29/18 02:00 Dose: Not Given Nystatin (Nystop Topical Powder) 1 applic TOP TID [facility] Last Admin: 03/29/18 09:20 Dose: 1 applic Pantoprazole Sodium (Protonix Ec Tab) 40 mg PO DAILY [facility] Last Admin: 03/29/18 09:30 Dose: 40 mg Potassium Chloride (K-Dur 20 Meq Er Tab) 40 meq PO DAILY [facility] Last Admin: 03/29/18 09:19 Dose: 40 meq - Labs Labs: 03/28/18 05:40 03/29/18 05:35 PT 12.3 Seconds (9.8-13.1) D 03/27/18 05:45 INR 1.1 03/27/18 05:45 APTT 56.5 Seconds (25.6-37.1) H 03/24/18 11:25 - Constitutional Appears: No Acute Distress, Chronically Ill - Head Exam Head Exam: NORMOCEPHALIC - Eye Exam Eye Exam: Scleral icterus - Neck Exam Neck Exam: Full ROM - Respiratory Exam Respiratory Exam: NORMAL BREATHING PATTERN - Cardiovascular Exam Cardiovascular Exam: REGULAR RHYTHM, +S1, +S2 - GI/Abdominal Exam GI & Abdominal Exam: Soft - Extremities Exam Extremities Exam: absent: Calf Tenderness - Neurological Exam Neurological Exam: Alert - Psychiatric Exam Psychiatric exam: Normal Affect - Skin Skin Exam: Dry, Warm Additional comments: jaundice Assessment and Plan (1) Obstructive jaundice Status: Acute (2) Elevated CA 19-9 level Status: Acute (3) Elevated CEA Status: Acute (4) Elevated liver enzymes Status: Acute (5) Pneumonia Status: Acute - Assessment and Plan (Free Text) Plan: - S/p ERCP yesterday with stent placement; f/u recs from GI Dr. Viramontes, recs appreciated; pending biopsy of mass at the major papilla tomorrow - Total bili down to 10 today from 14 on admission - Continue with antibiotics for PNA - Monitor liver enzymes on CMP; trending down but still elevated - Hypokalemia - replete K w/ PO K, stable today, monitor - Elevated CEA and CA19-9, possible pancreatic mass- heme/onc consult, Dr. Sathish Schwartz, recs pending and appreciated - s/p 2U PRBC transfusion during this admission, Hgb holding at 11 today - Heart healthy diet - Encourage participation in physical therapy - Lovenox SC
[2018-03-29] MEDS: Enoxaparin 40 mg Syringe SC SCH (13:35)
--- NOTE | 2018-03-29 16:26 | CP.PCM.PN ---
Subjective - Date & Time of Evaluation Date of Evaluation: 03/29/18 Time of Evaluation: 16:23 - Subjective Subjective: Feeling stronger. Reports good apetite Objective - Vital Signs/Intake and Output Vital Signs (last 24 hours): Temp Pulse Resp BP Pulse Ox 97.5 F L 73 20 111/70 98 03/29/18 16:21 03/29/18 16:21 03/29/18 16:21 03/29/18 16:21 03/29/18 16:21 - Medications Medications: Current Medications Dimethicone (Proshield Plus Skin Protectant) 1 applic TOP Q8 [facility] Last Admin: 03/29/18 09:21 Dose: 1 applic Enoxaparin Sodium (Lovenox) 40 mg SC DAILY [facility]; Protocol Last Admin: 03/29/18 13:35 Dose: 40 mg Furosemide (Lasix) 40 mg PO DAILY [facility] Last Admin: 03/29/18 09:19 Dose: 40 mg Azithromycin 500 mg/ Sodium (Chloride) 250 mls @ 250 mls/hr IVPB DAILY [facility]; Protocol Last Admin: 03/29/18 09:17 Dose: 250 mls/hr Ceftriaxone Sodium 1 gm/ (Sodium Chloride) 100 mls @ 100 mls/hr IVPB DAILY [facility]; Protocol Last Admin: 03/29/18 09:17 Dose: 100 mls/hr Lactated Ringer's (Lactated Ringer's) 1,000 mls @ 60 mls/hr IV .[id number] [facility] Last Admin: 03/29/18 02:00 Dose: Not Given Nystatin (Nystop Topical Powder) 1 applic TOP TID [facility] Last Admin: 03/29/18 13:36 Dose: 1 applic Pantoprazole Sodium (Protonix Ec Tab) 40 mg PO DAILY [facility] Last Admin: 03/29/18 09:30 Dose: 40 mg Potassium Chloride (K-Dur 20 Meq Er Tab) 40 meq PO DAILY [facility] Last Admin: 03/29/18 09:19 Dose: 40 meq - Labs Labs: 03/28/18 05:40 03/29/18 05:35 PT 12.3 Seconds (9.8-13.1) D 03/27/18 05:45 INR 1.1 03/27/18 05:45 APTT 56.5 Seconds (25.6-37.1) H 03/24/18 11:25 - Head Exam Head Exam: ATRAUMATIC - Eye Exam Eye Exam: Scleral icterus - ENT Exam ENT Exam: Normal Exam - Respiratory Exam Respiratory Exam: Clear to Ausculation Bilateral, NORMAL BREATHING PATTERN - GI/Abdominal Exam GI & Abdominal Exam: Distended, Soft. absent: Tenderness Assessment and Plan (1) Obstructive jaundice Assessment & Plan: Clinically improved and decreased Bili since stent placement. Upper endoscopy tomorrow with biopsy of ampullary mass. Status: Acute
[2018-03-30] MEDS: Proshield Plus GEL TOP SCH ×3 (01:05→17:14)
[2018-03-30 06:30] LABS: HEMOGLOBIN 11.2 g/dL (12.0-16.0); MEAN CELL VOLUME 94.4 fl (81.0-99.0); MEAN CORPUSCULAR HEMOGLOBIN 31.1 pg (27.0-31.0); MEAN CORPUSCULAR HGB CONC 32.9 g/dL (33.0-37.0); RBC 3.59 Mil/uL (3.80-5.20); RED CELL DISTRIBUTION WIDTH 17.3 % (11.5-14.5); WHITE BLOOD COUNT 9.1 K/uL (4.8-10.8)
[2018-03-30 06:53] LABS: ALB/GLOB RATIO 0.7 (1.0-2.1); ALBUMIN 2.3 g/dL (3.5-5.0); ALT/SGPT 89 U/L (9-52); AST/SGOT 103 U/L (14-36); BLOOD UREA NITROGEN 20 mg/dl (7-17); CALCIUM 8.6 mg/dL (8.4-10.2); GFR NON-AFRICAN AMERICAN > 60
[2018-03-30] MEDS ORDERED: Lactated Ringer's 500 ML IV ONE (08:02)
[2018-03-30] MEDS ORDERED: Propofol 10 mg/ml Inj (20 ML) ONE (08:17)
[2018-03-30] MEDS ORDERED: Etomidate 20 mg/10ml Inj IV ONE (08:17)
[2018-03-30] MEDS: Pantoprazole 40 mg EC Tab PO SCH (09:20)
[2018-03-30] MEDS: Azithromycin 500 MG in Sodium Chloride 0.9% 250 ML IVPB SCH (09:22)
[2018-03-30] MEDS: Potassium Chloride 20 mEq ER Tab PO SCH (09:25)
--- NOTE | 2018-03-30 09:44 | CP.PCM.PN ---
<Sultana Cruz - Last Filed: 03/30/18 09:47> Subjective - Date & Time of Evaluation Date of Evaluation: 03/30/18 Time of Evaluation: 07:55 - Subjective Subjective: Pt seen with Dr. Hicks this am, about to be transported for endoscopy biopsy. No acute events overnight. Continues to have jaundice. Tried to work with PT yesterday. Objective - Vital Signs/Intake and Output Vital Signs (last 24 hours): Temp Pulse Resp BP Pulse Ox 96.7 F L 72 20 117/56 L 99 03/30/18 08:46 03/30/18 08:46 03/30/18 08:46 03/30/18 09:14 03/30/18 08:46 Intake and Output: 03/30/18 03/30/18 06:59 18:59 Intake Total 160 Balance 160 - Medications Medications: Current Medications Dimethicone (Proshield Plus Skin Protectant) 1 applic TOP Q8 [facility] Last Admin: 03/30/18 09:20 Dose: 1 applic Enoxaparin Sodium (Lovenox) 40 mg SC DAILY [facility]; Protocol Last Admin: 03/29/18 13:35 Dose: 40 mg Furosemide (Lasix) 40 mg PO DAILY [facility] Last Admin: 03/30/18 09:14 Dose: Not Given Azithromycin 500 mg/ Sodium (Chloride) 250 mls @ 250 mls/hr IVPB DAILY [facility]; Protocol Last Admin: 03/30/18 09:22 Dose: 250 mls/hr Ceftriaxone Sodium 1 gm/ (Sodium Chloride) 100 mls @ 100 mls/hr IVPB DAILY [facility]; Protocol Last Admin: 03/30/18 09:21 Dose: 100 mls/hr Nystatin (Nystop Topical Powder) 1 applic TOP TID [facility] Last Admin: 03/30/18 09:21 Dose: 1 applic Pantoprazole Sodium (Protonix Ec Tab) 40 mg PO DAILY [facility] Last Admin: 03/30/18 09:20 Dose: 40 mg Potassium Chloride (K-Dur 20 Meq Er Tab) 40 meq PO DAILY [facility] Last Admin: 03/30/18 09:25 Dose: 40 meq - Labs Labs: 03/30/18 05:30 03/30/18 05:30 PT 12.3 Seconds (9.8-13.1) D 03/27/18 05:45 INR 1.1 03/27/18 05:45 APTT 56.5 Seconds (25.6-37.1) H 03/24/18 11:25 - Constitutional Appears: No Acute Distress, Chronically Ill - Eye Exam Eye Exam: Scleral icterus - Respiratory Exam Respiratory Exam: Clear to Ausculation Bilateral, NORMAL BREATHING PATTERN. absent: Respiratory Distress - Cardiovascular Exam Cardiovascular Exam: REGULAR RHYTHM - GI/Abdominal Exam GI & Abdominal Exam: Distended, Soft - Extremities Exam Extremities Exam: absent: Calf Tenderness - Neurological Exam Neurological Exam: Alert - Skin Skin Exam: Warm. absent: Normal Color Assessment and Plan (1) Obstructive jaundice Status: Acute (2) Elevated CA 19-9 level Status: Acute (3) Elevated CEA Status: Acute (4) Elevated liver enzymes Status: Acute (5) Pneumonia Status: Acute - Assessment and Plan (Free Text) Plan: - S/p ERCP 03/28 with stent placement; f/u recs from GI Dr. Viramontes, recs appreciated; biopsy of mass at the major papilla today - Total bili down to 7 today from 14 on admission - Continue with antibiotics for PNA - Monitor liver enzymes on CMP; trending down but still elevated - Hypokalemia - replete K w/ PO K, stable today, monitor - Elevated CEA and CA19-9, possible pancreatic mass- heme/onc consult, Dr. Sathish Schwartz, likely malignant will wait for biopsy results; recs appreciated - s/p 2U PRBC transfusion during this admission, Hgb stable - NPO for biopsy; then resume heart healthy diet - Encourage participation in physical therapy - Lovenox SC - held for biopsy, resume tomorrow <Anthony Hicks K - Last Filed: 03/31/18 14:23> Objective - Vital Signs/Intake and Output Vital Signs (last 24 hours): Temp Pulse Resp BP Pulse Ox 97.4 F L 79 18 112/72 95 03/31/18 09:00 03/31/18 09:00 03/31/18 09:00 03/31/18 10:24 03/31/18 00:03 - Medications Medications: Current Medications Dimethicone (Proshield Plus Skin Protectant) 1 applic TOP Q8 [facility] Last Admin: 03/31/18 10:17 Dose: 1 applic Enoxaparin Sodium (Lovenox) 40 mg SC DAILY [facility]; Protocol Last Admin: 03/29/18 13:35 Dose: 40 mg Furosemide (Lasix) 40 mg PO DAILY [facility] Last Admin: 03/31/18 10:24 Dose: 40 mg Azithromycin 500 mg/ Sodium (Chloride) 250 mls @ 250 mls/hr IVPB DAILY [facility]; Protocol Last Admin: 03/31/18 13:17 Dose: 250 mls/hr Ceftriaxone Sodium 1 gm/ (Sodium Chloride) 100 mls @ 100 mls/hr IVPB DAILY [facility]; Protocol Last Admin: 03/31/18 10:14 Dose: 100 mls/hr Nystatin (Nystop Topical Powder) 1 applic TOP TID [facility] Last Admin: 03/31/18 10:17 Dose: 1 applic Pantoprazole Sodium (Protonix Ec Tab) 40 mg PO DAILY [facility] Last Admin: 03/31/18 10:17 Dose: 40 mg Potassium Chloride (K-Dur 20 Meq Er Tab) 40 meq PO DAILY [facility] Last Admin: 03/31/18 10:15 Dose: 40 meq - Labs Labs: 03/31/18 05:40 03/31/18 05:40 PT 12.3 Seconds (9.8-13.1) D 03/27/18 05:45 INR 1.1 03/27/18 05:45 APTT 56.5 Seconds (25.6-37.1) H 03/24/18 11:25 Assessment and Plan - Assessment and Plan (Free Text) Plan: Patient was personally seen and examined by me in rounds with residents. Available labs and diagnostic data reviewed. Case, Patient's condition and management [facility] Agree with resident's progress note. Plan: As ordered.
--- NOTE | 2018-03-30 14:36 | RAD ---
Date of service: 03/28/2018 PROCEDURE: Intraoperative fluoroscopy HISTORY: DILATED CBD WITH STENT PLACEMENT COMPARISON: Not available TECHNIQUE: Intraoperative fluoroscopy was provided for ERCP and biliary stent placement. Total time of fluoroscopy was 109.6 sec. Cumulative dose was 41.98 mGy. FINDINGS: Four fluoroscopic spot films are submitted. IMPRESSION: Fluoroscopy provided.
[2018-03-31] MEDS: Proshield Plus GEL TOP SCH ×3 (01:30→16:24)
[2018-03-31 06:16] LABS: HEMOGLOBIN 10.6 g/dL (12.0-16.0); MEAN CELL VOLUME 94.7 fl (81.0-99.0); MEAN CORPUSCULAR HEMOGLOBIN 31.6 pg (27.0-31.0); MEAN CORPUSCULAR HGB CONC 33.3 g/dL (33.0-37.0); RBC 3.36 Mil/uL (3.80-5.20)
[2018-03-31 06:44] LABS: ALB/GLOB RATIO 0.7 (1.0-2.1); ALBUMIN 2.1 g/dL (3.5-5.0); ALT/SGPT 75 U/L (9-52); AST/SGOT 84 U/L (14-36); BLOOD UREA NITROGEN 17 mg/dl (7-17); CALCIUM 8.5 mg/dL (8.4-10.2); GFR NON-AFRICAN AMERICAN > 60
[2018-03-31] MEDS: Potassium Chloride 20 mEq ER Tab PO SCH (10:15)
[2018-03-31] MEDS: Pantoprazole 40 mg EC Tab PO SCH (10:17)
--- NOTE | 2018-03-31 10:45 | CP.PCM.PN ---
<Sultana Cruz - Last Filed: 03/31/18 10:42> Subjective - Date & Time of Evaluation Date of Evaluation: 03/31/18 Time of Evaluation: 07:20 - Subjective Subjective: Pt seen with Dr. Hicks this am; resting in bed. Jaundice appears to be slightly improving. No acute events overnight. S/p endoscopy biopsy yesterday. No specific complaints. Objective - Vital Signs/Intake and Output Vital Signs (last 24 hours): Temp Pulse Resp BP Pulse Ox 97.6 F 75 18 112/72 95 03/31/18 00:03 03/31/18 00:03 03/31/18 00:03 03/31/18 10:24 03/31/18 00:03 - Medications Medications: Current Medications Dimethicone (Proshield Plus Skin Protectant) 1 applic TOP Q8 [facility] Last Admin: 03/31/18 10:17 Dose: 1 applic Enoxaparin Sodium (Lovenox) 40 mg SC DAILY [facility]; Protocol Last Admin: 03/29/18 13:35 Dose: 40 mg Furosemide (Lasix) 40 mg PO DAILY [facility] Last Admin: 03/31/18 10:24 Dose: 40 mg Azithromycin 500 mg/ Sodium (Chloride) 250 mls @ 250 mls/hr IVPB DAILY [facility]; Protocol Last Admin: 03/30/18 09:22 Dose: 250 mls/hr Ceftriaxone Sodium 1 gm/ (Sodium Chloride) 100 mls @ 100 mls/hr IVPB DAILY [facility]; Protocol Last Admin: 03/31/18 10:14 Dose: 100 mls/hr Nystatin (Nystop Topical Powder) 1 applic TOP TID [facility] Last Admin: 03/31/18 10:17 Dose: 1 applic Pantoprazole Sodium (Protonix Ec Tab) 40 mg PO DAILY [facility] Last Admin: 03/31/18 10:17 Dose: 40 mg Potassium Chloride (K-Dur 20 Meq Er Tab) 40 meq PO DAILY [facility] Last Admin: 03/31/18 10:15 Dose: 40 meq - Labs Labs: 03/31/18 05:40 03/31/18 05:40 PT 12.3 Seconds (9.8-13.1) D 03/27/18 05:45 INR 1.1 03/27/18 05:45 APTT 56.5 Seconds (25.6-37.1) H 03/24/18 11:25 - Constitutional Appears: No Acute Distress, Chronically Ill - Head Exam Head Exam: NORMAL INSPECTION - Eye Exam Eye Exam: Scleral icterus - Respiratory Exam Respiratory Exam: NORMAL BREATHING PATTERN. absent: Respiratory Distress Additional comments: good air entry and movement b/l - Cardiovascular Exam Cardiovascular Exam: REGULAR RHYTHM - GI/Abdominal Exam GI & Abdominal Exam: Distended, Soft - Extremities Exam Extremities Exam: absent: Calf Tenderness - Neurological Exam Neurological Exam: Alert - Skin Skin Exam: Warm. absent: Normal Color Assessment and Plan (1) Obstructive jaundice Status: Acute (2) Elevated CA 19-9 level Status: Acute (3) Elevated CEA Status: Acute (4) Elevated liver enzymes Status: Acute (5) Pneumonia Status: Acute - Assessment and Plan (Free Text) Plan: - S/p ERCP 03/28 with stent placement and endoscopic biopsy 03/[address] Viramontes; recs appreciated - Total bili down to 5.9 today from 14 on admission - Continue with antibiotics for pneumonia (presumed bacterial) - Monitor liver enzymes on CMP; trending down but still elevated - Hypokalemia - replete K w/ PO K, stable today, monitor - Elevated CEA and CA19-9, possible pancreatic mass- heme/onc consult, Dr. Sathish Schwartz, likely malignant will wait for biopsy results; recs appreciated - s/p 2U PRBC transfusion during this admission, Hgb stable - Heart healthy diet - Encourage participation in physical therapy; PT rec subacute - Lovenox SC <Hicks,Anthony K - Last Filed: 03/31/18 14:19> Objective - Vital Signs/Intake and Output Vital Signs (last 24 hours): Temp Pulse Resp BP Pulse Ox 97.4 F L 79 18 112/72 95 03/31/18 09:00 03/31/18 09:00 03/31/18 09:00 03/31/18 10:24 03/31/18 00:03 - Medications Medications: Current Medications Dimethicone (Proshield Plus Skin Protectant) 1 applic TOP Q8 [facility] Last Admin: 03/31/18 10:17 Dose: 1 applic Enoxaparin Sodium (Lovenox) 40 mg SC DAILY [facility]; Protocol Last Admin: 03/29/18 13:35 Dose: 40 mg Furosemide (Lasix) 40 mg PO DAILY [facility] Last Admin: 03/31/18 10:24 Dose: 40 mg Azithromycin 500 mg/ Sodium (Chloride) 250 mls @ 250 mls/hr IVPB DAILY [facility]; Protocol Last Admin: 03/31/18 13:17 Dose: 250 mls/hr Ceftriaxone Sodium 1 gm/ (Sodium Chloride) 100 mls @ 100 mls/hr IVPB DAILY [facility]; Protocol Last Admin: 03/31/18 10:14 Dose: 100 mls/hr Nystatin (Nystop Topical Powder) 1 applic TOP TID [facility] Last Admin: 03/31/18 10:17 Dose: 1 applic Pantoprazole Sodium (Protonix Ec Tab) 40 mg PO DAILY [facility] Last Admin: 03/31/18 10:17 Dose: 40 mg Potassium Chloride (K-Dur 20 Meq Er Tab) 40 meq PO DAILY [facility] Last Admin: 03/31/18 10:15 Dose: 40 meq - Labs Labs: 03/31/18 05:40 03/31/18 05:40 PT 12.3 Seconds (9.8-13.1) D 03/27/18 05:45 INR 1.1 03/27/18 05:45 APTT 56.5 Seconds (25.6-37.1) H 03/24/18 11:25 Assessment and Plan - Assessment and Plan (Free Text) Plan: Patient was personally seen and examined by me in rounds with residents. Available labs and diagnostic data reviewed. Case, Patient's condition and management plan discussed with residents in rounds. Agree with resident's progress note. Plan: As ordered.
[2018-03-31] MEDS: Azithromycin 500 MG in Sodium Chloride 0.9% 250 ML IVPB SCH (13:17)
[2018-04-01] MEDS: Proshield Plus GEL TOP SCH ×3 (01:00→16:26)
[2018-04-01 07:12] LABS: HEMOGLOBIN 9.8 g/dL (12.0-16.0); MEAN CELL VOLUME 95.6 fl (81.0-99.0); MEAN CORPUSCULAR HEMOGLOBIN 31.9 pg (27.0-31.0); MEAN CORPUSCULAR HGB CONC 33.3 g/dL (33.0-37.0); RBC 3.09 Mil/uL (3.80-5.20); RED CELL DISTRIBUTION WIDTH 16.8 % (11.5-14.5); WHITE BLOOD COUNT 7.5 K/uL (4.8-10.8)
[2018-04-01 07:31] LABS: ALB/GLOB RATIO 0.7 (1.0-2.1); ALBUMIN 2.1 g/dL (3.5-5.0); ALT/SGPT 71 U/L (9-52); AST/SGOT 86 U/L (14-36); BLOOD UREA NITROGEN 15 mg/dl (7-17); CALCIUM 8.2 mg/dL (8.4-10.2); GFR NON-AFRICAN AMERICAN > 60
[2018-04-01] MEDS: Potassium Chloride 20 mEq ER Tab PO SCH (09:16)
[2018-04-01] MEDS: Enoxaparin 40 mg Syringe SC SCH (09:17)
[2018-04-01] MEDS: Pantoprazole 40 mg EC Tab PO SCH (09:18)
[2018-04-01] MEDS: Azithromycin 500 MG in Sodium Chloride 0.9% 250 ML IVPB SCH (09:19)
--- NOTE | 2018-04-01 12:26 | PN ---
DATE: 04/01/2018 SUBJECTIVE: The patient is seen and examined. Interim events noted. Consults noted and appreciated. The patient remains in regular medical floor. The patient is awake, responsive, feels okay. Denies any specific complaint. No pain, although the patient is not a reliable historian. No specific issue reported by nursing staff. PHYSICAL EXAMINATION: GENERAL: The patient is in no acute distress. VITAL SIGNS: Stable. HEART: S1 and S2, normal and regular. LUNGS: Good bilateral air exchange. ABDOMEN: Soft, nontender. No organomegaly. No fluid. Bowel sounds are plus and normal. No sign of acute abdomen. No guarding. No rigidity. No rebound. EXTREMITIES: No edema. No calf swelling. No tenderness. No acute ischemia. 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 DIAGNOSTIC DATA: Available diagnostic data reviewed. ASSESSMENT AND PLAN: Overall, the patient's general medical condition is stable. Biopsy does not reveal any malignancy. The patient might need open biopsy. Plan as ordered. Case and plan discussed with the patient. Anthony Hicks MD
--- NOTE | 2018-04-02 00:24 | CP.PCM.PN ---
Subjective - Date & Time of Evaluation Date of Evaluation: 04/08/18 Time of Evaluation: 23:00 - Subjective Subjective: Patient w/o complaint Objective - Vital Signs/Intake and Output Vital Signs (last 24 hours): Temp Pulse Resp BP Pulse Ox 98.1 F 71 20 119/71 96 04/01/18 17:04 04/01/18 17:04 04/01/18 17:04 04/01/18 17:04 04/01/18 17:04 - Medications Medications: Current Medications Dimethicone (Proshield Plus Skin Protectant) 1 applic TOP Q8 [facility] Last Admin: 04/01/18 16:26 Dose: 1 applic Enoxaparin Sodium (Lovenox) 40 mg SC DAILY [facility]; Protocol Last Admin: 04/01/18 09:17 Dose: 40 mg Furosemide (Lasix) 40 mg PO DAILY [facility] Last Admin: 04/01/18 09:16 Dose: 40 mg Azithromycin 500 mg/ Sodium (Chloride) 250 mls @ 250 mls/hr IVPB DAILY [facility]; Protocol Last Admin: 04/01/18 09:19 Dose: 250 mls/hr Ceftriaxone Sodium 1 gm/ (Sodium Chloride) 100 mls @ 100 mls/hr IVPB DAILY [facility]; Protocol Last Admin: 04/01/18 09:18 Dose: 100 mls/hr Nystatin (Nystop Topical Powder) 1 applic TOP TID [facility] Last Admin: 04/01/18 16:25 Dose: 1 applic Pantoprazole Sodium (Protonix Ec Tab) 40 mg PO DAILY [facility] Last Admin: 04/01/18 09:18 Dose: 40 mg Potassium Chloride (K-Dur 20 Meq Er Tab) 40 meq PO DAILY [facility] Last Admin: 04/01/18 09:16 Dose: 40 meq - Labs Labs: 04/01/18 05:35 04/01/18 05:35 PT 12.3 Seconds (9.8-13.1) D 03/27/18 05:45 INR 1.1 03/27/18 05:45 APTT 56.5 Seconds (25.6-37.1) H 03/24/18 11:25 - Head Exam Head Exam: ATRAUMATIC - Eye Exam Eye Exam: Normal appearance - ENT Exam ENT Exam: Normal Exam - Neck Exam Neck Exam: Full ROM - Respiratory Exam Respiratory Exam: Clear to Ausculation Bilateral - Cardiovascular Exam Cardiovascular Exam: REGULAR RHYTHM - GI/Abdominal Exam GI & Abdominal Exam: Soft. absent: Tenderness Assessment and Plan (1) Obstructive jaundice Assessment & Plan: LFTs continue improving since stent placement. Endoscopic biopsies negative. Will discuss further w/u with Oncology. Status: Acute
[2018-04-02] MEDS: Proshield Plus GEL TOP SCH ×3 (01:18→17:17)
[2018-04-02 07:41] LABS: ALB/GLOB RATIO 0.7 (1.0-2.1); ALBUMIN 2.2 g/dL (3.5-5.0); ALT/SGPT 75 U/L (9-52); AST/SGOT 102 U/L (14-36); BLOOD UREA NITROGEN 14 mg/dl (7-17); CALCIUM 8.3 mg/dL (8.4-10.2); GFR NON-AFRICAN AMERICAN > 60
[2018-04-02 07:47] LABS: HEMOGLOBIN 10.4 g/dL (12.0-16.0); MEAN CELL VOLUME 98.1 fl (81.0-99.0); MEAN CORPUSCULAR HEMOGLOBIN 31.7 pg (27.0-31.0); MEAN CORPUSCULAR HGB CONC 32.3 g/dL (33.0-37.0); RBC 3.29 Mil/uL (3.80-5.20); RED CELL DISTRIBUTION WIDTH 17.1 % (11.5-14.5); WHITE BLOOD COUNT 6.7 K/uL (4.8-10.8)
[2018-04-02] MEDS: Azithromycin 500 MG in Sodium Chloride 0.9% 250 ML IVPB SCH (09:51)
[2018-04-02] MEDS: Enoxaparin 40 mg Syringe SC SCH (09:54)
[2018-04-02] MEDS: Potassium Chloride 20 mEq ER Tab PO SCH (09:56)
[2018-04-02] MEDS: Pantoprazole 40 mg EC Tab PO SCH (09:57)
[2018-04-03] MEDS: Proshield Plus GEL TOP SCH ×3 (01:37→16:05)
[2018-04-03] MEDS: Azithromycin 500 MG in Sodium Chloride 0.9% 250 ML IVPB SCH (08:06)
[2018-04-03] MEDS: Enoxaparin 40 mg Syringe SC SCH (08:07)
[2018-04-03] MEDS: Pantoprazole 40 mg EC Tab PO SCH (08:07)
[2018-04-03] MEDS: Potassium Chloride 20 mEq ER Tab PO SCH (08:07)
--- NOTE | 2018-04-03 10:22 | CP.PCM.PN ---
Subjective - Date & Time of Evaluation Date of Evaluation: 04/03/18 (`n) Time of Evaluation: 10:23 - Subjective Subjective: Pt's biopsy did not show a malignant tumor. She may need a EUS biopsy to make a decision re the pancreatic mass. Objective - Vital Signs/Intake and Output Vital Signs (last 24 hours): Temp Pulse Resp BP Pulse Ox 97.5 F L 68 20 117/71 100 04/03/18 08:23 04/03/18 08:23 04/03/18 08:23 04/03/18 08:23 04/03/18 08:23 - Medications Medications: Current Medications Dimethicone (Proshield Plus Skin Protectant) 1 applic TOP Q8 [facility] Last Admin: 04/03/18 08:07 Dose: 1 applic Enoxaparin Sodium (Lovenox) 40 mg SC DAILY [facility]; Protocol Last Admin: 04/03/18 08:07 Dose: 40 mg Furosemide (Lasix) 40 mg PO DAILY [facility] Last Admin: 04/03/18 08:07 Dose: 40 mg Azithromycin 500 mg/ Sodium (Chloride) 250 mls @ 250 mls/hr IVPB DAILY [facility]; Protocol Last Admin: 04/03/18 08:06 Dose: 250 mls/hr Ceftriaxone Sodium 1 gm/ (Sodium Chloride) 100 mls @ 100 mls/hr IVPB DAILY [facility]; Protocol Last Admin: 04/03/18 08:06 Dose: 100 mls/hr Nystatin (Nystop Topical Powder) 1 applic TOP TID [facility] Last Admin: 04/03/18 08:07 Dose: 1 applic Pantoprazole Sodium (Protonix Ec Tab) 40 mg PO DAILY [facility] Last Admin: 04/03/18 08:07 Dose: 40 mg Potassium Chloride (K-Dur 20 Meq Er Tab) 40 meq PO DAILY [facility] Last Admin: 04/03/18 08:07 Dose: 40 meq - Labs Labs: 04/02/18 05:30 04/02/18 05:30 PT 12.3 Seconds (9.8-13.1) D 03/27/18 05:45 INR 1.1 03/27/18 05:45 APTT 56.5 Seconds (25.6-37.1) H 03/24/18 11:25
--- NOTE | 2018-04-03 14:52 | CP.PCM.PN ---
Subjective - Date & Time of Evaluation Date of Evaluation: 04/03/18 Time of Evaluation: 14:49 - Subjective Subjective: Patient without complaint. She is inquiring about the results of her tests. Objective - Vital Signs/Intake and Output Vital Signs (last 24 hours): Temp Pulse Resp BP Pulse Ox 97.5 F L 68 20 117/71 100 04/03/18 08:23 04/03/18 08:23 04/03/18 08:23 04/03/18 08:23 04/03/18 08:23 - Medications Medications: Current Medications Dimethicone (Proshield Plus Skin Protectant) 1 applic TOP Q8 [facility] Last Admin: 04/03/18 08:07 Dose: 1 applic Furosemide (Lasix) 40 mg PO DAILY [facility] Last Admin: 04/03/18 08:07 Dose: 40 mg Nystatin (Nystop Topical Powder) 1 applic TOP TID [facility] Last Admin: 04/03/18 13:23 Dose: 1 applic Pantoprazole Sodium (Protonix Ec Tab) 40 mg PO DAILY [facility] Last Admin: 04/03/18 08:07 Dose: 40 mg Potassium Chloride (K-Dur 20 Meq Er Tab) 40 meq PO DAILY [facility] Last Admin: 04/03/18 08:07 Dose: 40 meq - Labs Labs: 04/02/18 05:30 04/02/18 05:30 PT 12.3 Seconds (9.8-13.1) D 03/27/18 05:45 INR 1.1 03/27/18 05:45 APTT 56.5 Seconds (25.6-37.1) H 03/24/18 11:25 - Head Exam Head Exam: ATRAUMATIC - Eye Exam Eye Exam: Normal appearance - ENT Exam ENT Exam: Mucous Membranes Moist - Neck Exam Neck Exam: Normal Inspection - Cardiovascular Exam Cardiovascular Exam: REGULAR RHYTHM - GI/Abdominal Exam GI & Abdominal Exam: Soft, Normal Bowel Sounds. absent: Tenderness Assessment and Plan (1) Obstructive jaundice Assessment & Plan: Bili and Alk Phos have been coming down since stent placement. Biopsies from ampulla did not show malignancy. Agree with Oncology that EUS is advisable and we will be referring her for the exam. In the meantime physical therapy and possible transfer to the TCU. Status: Acute
[2018-04-04] MEDS: Proshield Plus GEL TOP SCH ×3 (01:30→15:59)
[2018-04-04] MEDS: Potassium Chloride 20 mEq ER Tab PO SCH (09:44)
[2018-04-04] MEDS: Pantoprazole 40 mg EC Tab PO SCH (09:44)
[2018-04-05 00:05] VITALS: RESP 20
[2018-04-05] MEDS: Proshield Plus GEL TOP SCH ×2 (01:30→08:47)
[2018-04-05 07:55] VITALS: BP 135/83; PULSE 68; TEMP 97.5; O2SAT 98
[2018-04-05] MEDS: Potassium Chloride 20 mEq ER Tab PO SCH (08:48)
[2018-04-05] MEDS: Pantoprazole 40 mg EC Tab PO SCH (08:48)
--- NOTE | 2018-04-05 09:32 | CP.PCM.PN ---
Subjective - Date & Time of Evaluation Date of Evaluation: 04/05/18 Time of Evaluation: 09:26 - Subjective Subjective: Pt looks and feels much better today.Her bilirubin has come down since the CBD stent was placed. the ampullary biopsy was negstive for tumr. She needs a EUS biopsy which will probably be done as an out patient in [facility]. Now she is being transferred to a sub acute rehab from where she will be sent to [place] for a biopsy. Objective - Vital Signs/Intake and Output Vital Signs (last 24 hours): Temp Pulse Resp BP Pulse Ox 97.5 F L 68 20 135/83 98 04/05/18 07:54 04/05/18 07:54 04/05/18 07:54 04/05/18 08:48 04/05/18 07:54 - Medications Medications: Current Medications Dimethicone (Proshield Plus Skin Protectant) 1 applic TOP Q8 [facility] Last Admin: 04/05/18 08:47 Dose: 1 applic Furosemide (Lasix) 40 mg PO DAILY [facility] Last Admin: 04/05/18 08:48 Dose: 40 mg Nystatin (Nystop Topical Powder) 1 applic TOP TID [facility] Last Admin: 04/05/18 08:47 Dose: 1 applic Pantoprazole Sodium (Protonix Ec Tab) 40 mg PO DAILY [facility] Last Admin: 04/05/18 08:48 Dose: 40 mg Potassium Chloride (K-Dur 20 Meq Er Tab) 40 meq PO DAILY [facility] Last Admin: 04/05/18 08:48 Dose: 40 meq - Labs Labs: 04/02/18 05:30 04/02/18 05:30 PT 12.3 Seconds (9.8-13.1) D 03/27/18 05:45 INR 1.1 03/27/18 05:45 APTT 56.5 Seconds (25.6-37.1) H 03/24/18 11:25
--- NOTE | 2018-04-05 17:01 | CP.PCM.PN ---
Subjective - Date & Time of Evaluation Date of Evaluation: 04/05/18 Time of Evaluation: 10:00 - Subjective Subjective: Patient without complaint Objective - Vital Signs/Intake and Output Vital Signs (last 24 hours): Temp Pulse Resp BP Pulse Ox 97.5 F L 68 20 135/83 98 04/05/18 07:54 04/05/18 07:54 04/05/18 07:54 04/05/18 08:48 04/05/18 07:54 - Labs Labs: 04/02/18 05:30 04/02/18 05:30 PT 12.3 Seconds (9.8-13.1) D 03/27/18 05:45 INR 1.1 03/27/18 05:45 APTT 56.5 Seconds (25.6-37.1) H 03/24/18 11:25 - Head Exam Head Exam: ATRAUMATIC - Eye Exam Eye Exam: Scleral icterus Pupil Exam: NORMAL ACCOMODATION - ENT Exam ENT Exam: Mucous Membranes Moist - Neck Exam Neck Exam: Full ROM - Respiratory Exam Respiratory Exam: NORMAL BREATHING PATTERN - Cardiovascular Exam Cardiovascular Exam: REGULAR RHYTHM - GI/Abdominal Exam GI & Abdominal Exam: Soft. absent: Tenderness Assessment and Plan (1) Obstructive jaundice Assessment & Plan: Patient to receive physical therapy. Will need EUS for tissue diagnosis of likely malignancy. Status: Acute
== END 2018-04-05 14:49 | DRG 444 ==
LOC: H.ER 10:37 → H.ERHOLD 12:15 → H.MEDSURG1 16:43
PROVIDERS: ADMIT Family Medicine; ATTEND Family Medicine
PROC: 30233N1 Transfusion of Nonautologous Red Blood Cells into Peripheral Vein, Percutaneous Approach (ICD-10-PCS; 2018-03-25)
PROC: 0F7D8DZ Dilation of Pancreatic Duct with Intraluminal Device, Via Natural or Artificial Opening Endoscopic (ICD-10-PCS; 2018-03-28)
PROC: BF11YZZ Fluoroscopy of Biliary and Pancreatic Ducts using Other Contrast (ICD-10-PCS; 2018-03-28)
PROC: 0F798DZ Dilation of Common Bile Duct with Intraluminal Device, Via Natural or Artificial Opening Endoscopic (ICD-10-PCS; principal; 2018-03-28 08:00)
PROC: 0DB98ZX Excision of Duodenum, Via Natural or Artificial Opening Endoscopic, Diagnostic (ICD-10-PCS; 2018-03-30)
DX: K83.1 Obstruction of bile duct (principal); J15.9 Unspecified bacterial pneumonia; D37.8 Neoplasm of uncertain behavior of other specified digestive organs; E87.6 Hypokalemia; R74.8 Abnormal levels of other serum enzymes; R97.0 Elevated carcinoembryonic antigen [CEA]; K31.89 Other diseases of stomach and duodenum; M17.0 Bilateral primary osteoarthritis of knee